=== PATIENT | female | born 1995 | race Caucasian/White ===

== ENCOUNTER 2020-05-05 20:55 | Emergency (ER) | payer BC ==
[~2020-05-05] VITALS: Ht 160 cm; Wt 61.2 kg
[2020-05-05 21:00] VITALS: BP 122/66
[2020-05-05 21:10] VITALS: BP 122/66
--- NOTE | 2020-05-05 21:10 | NUR ---
ASSESSD, TREATED, AND D/C BY ORVILLE BRYAN. NON NURSING INTERVENTION NEEDED.
== END 2020-05-05 21:10 | disposition home or self-care (01) ==
LOC: MED 20:55
DX: L03.115 Cellulitis of right lower limb (principal); I51.89 Other ill-defined heart diseases; W57.XXXA Bitten or stung by nonvenomous insect and other nonvenomous arthropods, initial encounter; Y93.89 Activity, other specified; Y92.89 Other specified places as the place of occurrence of the external cause; Y99.8 Other external cause status
CPT/HCPCS: 99283

== ENCOUNTER 2020-07-30 19:00 | Emergency (ER) | payer BC ==
[~2020-07-30] VITALS: Ht 158.8 cm; Wt 69.9 kg
[2020-07-30 19:04] VITALS: BP 119/54
--- NOTE | 2020-07-30 19:21 | NUR ---
24 y/o female c/o of abd pain. pt states she had severe abd pain that "felt like contractions for 12 minutes then went away." with c/o nausea and 4 episodes of vomiting. pt denies pain at this time. pt is approx 15 weeks . MEDHX- becki-danlos syndrome, arnold chiari type 2 NKA
--- NOTE | 2020-07-30 19:29 | NUR ---
DR CHAIREZ AT BEDSIDE EXAMINING PT
[2020-07-30] MEDS ORDERED: NACL 0.9% 1,000 ML IV ONE (19:35)
--- NOTE | 2020-07-30 20:00 | NUR ---
URINE AND BLOOD COLLECTED AND SENT TO LAB
[2020-07-30] MEDS ORDERED: ONDANSETRON 4 MG/2 ML VIAL IVP ONE (20:05)
[2020-07-30 20:08] LABS: APPEARANCE,URINE CLEAR (CLEAR); BILIRUBIN,URINE NEGATIVE (NEGATIVE); BLOOD, URINE NEGATIVE (NEGATIVE); COLOR,URINE YELLOW (YELLOW); LEUKOCYTE ESTERASE ,URINE NEGATIVE (NEGATIVE); NITRITE, URINE NEGATIVE (NEGATIVE); PH,URINE 6.5 (5.0-9.0); UGLUCOSE NEGATIVE (NEGATIVE)
[2020-07-30 20:09] LABS: BASOPHILS % (AUTO) 0.2 % (0.0-2.0); EOSINOPHILS % (AUTO) 0.5 % (0.0-4.0); HEMATOCRIT 39.9 % (36-48); HEMOGLOBIN 13.9 g/dL (12.0-16.0); LYMPHOCYTES # (AUTO) 2.5 K/uL (2.5-16.5); LYMPHOCYTES % (AUTO) 28.9 % (20.5-51.1); MEAN CORPUSCULAR HEMOGLOBIN 31 pg (27-31); MEAN CORPUSCULAR HGB CONC 35 g/dL (33-37); MEAN CORPUSCULAR VOLUME 88.3 fL (80-94); MONOCYTES # (AUTO) 0.5 K/uL (0.8-1.0); NEUTROPHILS # (AUTO) 5.5 K/uL (1.8-7.7); NEUTROPHILS % (AUTO) 64.4 % (42.2-75.2); PLATELET COUNT (AUTO) 283 K/uL (140-450); RED BLOOD CELL COUNT(AUTO) 4.51 MIL/uL (4.20-5.40); RED CELL DISTRIBUTION WIDTH 13.6 % (11.6-13.7); WHITE BLOOD COUNT (AUTO) 8.6 K/uL (4.8-10.8)
[2020-07-30 20:27] LABS: ALBUMIN 3.3 g/dL (3.4-5.0); ANION GAP 13.2 (8-16); CARBON DIOXIDE 26.5 mmol/L (21-32); CREATININE 0.5 mg/dL (0.6-1.3); POTASSIUM 3.7 mmol/L (3.5-5.1); TOTAL BILIRUBIN 0.2 mg/dL (0.0-1.0)
[2020-07-30 20:50] VITALS: BP 119/54
--- NOTE | 2020-07-30 20:50 | NUR ---
Patient discharged with v/s stable. Written and verbal after care instructions given and explained. Patient verbalized understanding. Ambulatory with steady gait. ID Band Removed. All questions addressed prior to discharge. Advised to follow up with PMD.
== END 2020-07-30 20:50 | disposition home or self-care (01) ==
LOC: MED 19:00
DX: O26.891 Other specified pregnancy related conditions, first trimester (principal); O21.9 Vomiting of pregnancy, unspecified; I51.89 Other ill-defined heart diseases; Z3A.15 15 weeks gestation of pregnancy
CPT/HCPCS: 36415; 80053; 81003; 81025; 83690; 85025; 96361; 96374; 99284; J2405; J7030

== ENCOUNTER 2020-11-06 15:00 | Observation (INO) | payer BC, SELFPAY ==
[~2020-11-06] VITALS: Ht 160 cm; Wt 74.8 kg
[2020-11-06] MEDS ORDERED: LACTATED RINGERS 1,000 ML IV SCH (15:35)
[2020-11-06] MEDS ORDERED: PANTOPRAZOLE 40 MG INJ VIAL IVP SCH (15:45)
[2020-11-06 16:07] LABS: BASOPHILS % (AUTO) 0.2 % (0.0-2.0); EOSINOPHILS # (AUTO) 0.1 K/uL (0-0.4); EOSINOPHILS % (AUTO) 0.6 % (0.0-4.0); HEMATOCRIT 32.8 % (36-48); LYMPHOCYTES # (AUTO) 2.2 K/uL (2.5-16.5); LYMPHOCYTES % (AUTO) 21.4 % (20.5-51.1); MEAN CORPUSCULAR HEMOGLOBIN 30 pg (27-31); MEAN CORPUSCULAR HGB CONC 34 g/dL (33-37); MEAN CORPUSCULAR VOLUME 87.9 fL (80-94); MONOCYTES # (AUTO) 0.7 K/uL (0.8-1.0); MONOCYTES % (AUTO) 6.3 % (1.7-9.3); NEUTROPHILS # (AUTO) 7.5 K/uL (1.8-7.7); NEUTROPHILS % (AUTO) 71.5 % (42.2-75.2); PLATELET COUNT (AUTO) 310 K/uL (140-450); RED BLOOD CELL COUNT(AUTO) 3.73 MIL/uL (4.20-5.40); RED CELL DISTRIBUTION WIDTH 12.8 % (11.6-13.7); WHITE BLOOD COUNT (AUTO) 10.5 K/uL (4.8-10.8)
[2020-11-06 16:30] LABS: ALBUMIN 2.7 g/dL (3.4-5.0); ANION GAP 10.9 (8-16); CARBON DIOXIDE 24.9 mmol/L (21-32); CREATININE 0.6 mg/dL (0.6-1.3); POTASSIUM 3.8 mmol/L (3.5-5.1); TOTAL BILIRUBIN 0.1 mg/dL (0.0-1.0)
[2020-11-06] MEDS ORDERED: FLUO10CA21 PO (16:48)
[2020-11-06] MEDS ORDERED: FERR-212 PO (16:48)
[2020-11-06] MEDS ORDERED: PNV91TAB10 PO (16:48)
[2020-11-06] MEDS ORDERED: ACETAMINOPHEN 325 MG TAB PO PRN (19:35)
[2020-11-06] MEDS ORDERED: ACETAMINOPHEN 325 MG TAB ONE (19:38)
== END 2020-11-06 21:03 | disposition home or self-care (01) ==
LOC: MLD 15:00
PROVIDERS: ADMIT Obstetrics & Gynecology; ATTEND Obstetrics & Gynecology
DX: O99.613 Diseases of the digestive system complicating pregnancy, third trimester (principal); K21.9 Gastro-esophageal reflux disease without esophagitis; Z20.822 Contact with and (suspected) exposure to COVID-19; O26.893 Other specified pregnancy related conditions, third trimester; R07.89 Other chest pain; R51.9 Headache, unspecified; O99.343 Other mental disorders complicating pregnancy, third trimester; F32.9 Major depressive disorder, single episode, unspecified; O99.891 Other specified diseases and conditions complicating pregnancy; Q79.60 Ehlers-Danlos syndrome, unspecified; I95.9 Hypotension, unspecified; O99.283 Endocrine, nutritional and metabolic diseases complicating pregnancy, third trimester; D35.2 Benign neoplasm of pituitary gland; O99.013 Anemia complicating pregnancy, third trimester; D64.9 Anemia, unspecified; Z87.59 Personal history of other complications of pregnancy, childbirth and the puerperium; Z3A.30 30 weeks gestation of pregnancy
CPT/HCPCS: 36415; 80053; 83880; 84484; 85025; 86886; 86900; 86901; 87426; 93005; 96361; 96374; C9113; G0378; J7120

== ENCOUNTER 2020-12-26 11:15 | Observation (INO) | payer BC, MEDICAID, SELFPAY ==
[~2020-12-26] VITALS: Ht 152.4 cm; Wt 81.6 kg
[~2020-12-26 11:15] MED LIST: FERR-212 PO; FLUO10CA21 PO; PNV91TAB10 PO
[2020-12-26] MEDS ORDERED: MORPHINE SULFATE 4 MG/ML SYR IVP PRN (12:20)
[2020-12-26] MEDS ORDERED: LACTATED RINGERS 1,000 ML IV SCH (12:20)
[2020-12-26] MEDS ORDERED: ONDANSETRON 4 MG/2 ML VIAL IVP PRN (12:20)
[2020-12-26 13:03] LABS: BASOPHILS % (AUTO) 0.1 % (0.0-2.0); EOSINOPHILS % (AUTO) 0.1 % (0.0-4.0); HEMATOCRIT 35.4 % (36-48); HEMOGLOBIN 11.4 g/dL (12.0-16.0); LYMPHOCYTES % (AUTO) 8.3 % (20.5-51.1); MEAN CORPUSCULAR HEMOGLOBIN 27 pg (27-31); MEAN CORPUSCULAR HGB CONC 32 g/dL (33-37); MEAN CORPUSCULAR VOLUME 81.9 fL (80-94); MONOCYTES # (AUTO) 0.6 K/uL (0.8-1.0); MONOCYTES % (AUTO) 5.2 % (1.7-9.3); NEUTROPHILS # (AUTO) 10.1 K/uL (1.8-7.7); NEUTROPHILS % (AUTO) 86.3 % (42.2-75.2); PLATELET COUNT (AUTO) 295 K/uL (140-450); RED BLOOD CELL COUNT(AUTO) 4.32 MIL/uL (4.20-5.40); RED CELL DISTRIBUTION WIDTH 14.6 % (11.6-13.7); WHITE BLOOD COUNT (AUTO) 11.7 K/uL (4.8-10.8)
[2020-12-26 13:04] LABS: APPEARANCE,URINE CLOUDY (CLEAR); BILIRUBIN,URINE NEGATIVE (NEGATIVE); BLOOD, URINE NEGATIVE (NEGATIVE); COLOR,URINE YELLOW (YELLOW); LEUKOCYTE ESTERASE ,URINE 2+ (NEGATIVE); NITRITE, URINE NEGATIVE (NEGATIVE); UGLUCOSE NEGATIVE (NEGATIVE)
[2020-12-26 13:13] LABS: RBC,URINE 0-5 /HPF (0-5)
[2020-12-26 13:14] LABS: URINE AMORPHOUS URATE 1+ /HPF (None Seen)
[2020-12-26] MEDS ORDERED: cefTRIAXone 1,000 MG in LIDOCAINE MPF 1% 2.1 ML INJ SCH (15:00)
[2020-12-26 15:07] VITALS: BP 113/74
== END 2020-12-26 16:45 | disposition home or self-care (01) ==
LOC: MLD 11:15
PROVIDERS: ADMIT Obstetrics & Gynecology; ATTEND Obstetrics & Gynecology
DX: O62.9 Abnormality of forces of labor, unspecified (principal); Z3A.37 37 weeks gestation of pregnancy
CPT/HCPCS: 36415; 59025; 81001; 85025; 87086; 87653; 96361; 96372; 96374; 96375; G0378; J0696; J2001; J2270; J2405; J7120

== ENCOUNTER 2020-12-28 10:15 | Observation (INO) | payer BC, MEDICAID, SELFPAY ==
[~2020-12-28] VITALS: Ht 160 cm; Wt 81.6 kg
[2020-12-28] MEDS ORDERED: NACL 0.9% 1,000 ML IV SCH (10:35)
[2020-12-28] MEDS ORDERED: LOPERAMIDE 2 MG CAP PO SCH (10:35)
[2020-12-28] MEDS ORDERED: NACL 0.9% 500 ML IV SCH (10:35)
[2020-12-28] MEDS ORDERED: OXYTOCIN 20 UNITS/LR PREMIX 1,000 ML IV ONE (11:23)
[2020-12-28 11:41] LABS: BASOPHILS % (AUTO) 0.2 % (0.0-2.0); EOSINOPHILS % (AUTO) 0.2 % (0.0-4.0); HEMATOCRIT 30.7 % (36-48); HEMOGLOBIN 10.1 g/dL (12.0-16.0); LYMPHOCYTES # (AUTO) 1.5 K/uL (2.5-16.5); LYMPHOCYTES % (AUTO) 16.8 % (20.5-51.1); MEAN CORPUSCULAR HEMOGLOBIN 27 pg (27-31); MEAN CORPUSCULAR HGB CONC 33 g/dL (33-37); MEAN CORPUSCULAR VOLUME 81.8 fL (80-94); MONOCYTES # (AUTO) 0.6 K/uL (0.8-1.0); MONOCYTES % (AUTO) 7.2 % (1.7-9.3); NEUTROPHILS # (AUTO) 6.6 K/uL (1.8-7.7); NEUTROPHILS % (AUTO) 75.6 % (42.2-75.2); PLATELET COUNT (AUTO) 237 K/uL (140-450); RED BLOOD CELL COUNT(AUTO) 3.76 MIL/uL (4.20-5.40); RED CELL DISTRIBUTION WIDTH 14.5 % (11.6-13.7); WHITE BLOOD COUNT (AUTO) 8.7 K/uL (4.8-10.8)
[2020-12-28] MEDS ORDERED: ONDANSETRON 4 MG/2 ML VIAL IVP PRN (11:50)
[2020-12-28 13:02] LABS: APPEARANCE,URINE CLOUDY (CLEAR); BILIRUBIN,URINE 1+ (NEGATIVE); BLOOD, URINE NEGATIVE (NEGATIVE); COLOR,URINE ORANGE (YELLOW); LEUKOCYTE ESTERASE ,URINE 2+ (NEGATIVE); NITRITE, URINE NEGATIVE (NEGATIVE); UGLUCOSE NEGATIVE (NEGATIVE)
[2020-12-28 14:56] VITALS: BP 114/71
[2020-12-28 16:32] LABS: POTASSIUM 3.9 mmol/L (3.5-5.1)
[2020-12-28 16:33] LABS: ANION GAP 21.1 (8-16); CARBON DIOXIDE 16.8 mmol/L (21-32); CREATININE 0.6 mg/dL (0.6-1.3); TOTAL BILIRUBIN 0.2 mg/dL (0.0-1.0)
[2020-12-28 16:34] LABS: ALBUMIN 2.3 g/dL (3.4-5.0)
[2020-12-28 18:17] LABS: RBC,URINE 0-5 /HPF (0-5)
== END 2020-12-28 14:00 | disposition home or self-care (01) ==
LOC: MLD 10:15
PROVIDERS: ADMIT Obstetrics & Gynecology; ATTEND Obstetrics & Gynecology
DX: O99.891 Other specified diseases and conditions complicating pregnancy (principal); E86.0 Dehydration; Z20.822 Contact with and (suspected) exposure to COVID-19; O26.893 Other specified pregnancy related conditions, third trimester; R19.7 Diarrhea, unspecified; Z3A.37 37 weeks gestation of pregnancy
CPT/HCPCS: 36415; 80053; 81000; 81001; 85025; 87086; 87426; 96361; 96374; G0378; J2405; J2590

== ENCOUNTER 2021-01-10 15:33 | Inpatient (IN) | payer BC, MEDICAID, SELFPAY ==
[~2021-01-10] VITALS: Ht 160 cm; Wt 83.0 kg
[2021-01-10] MEDS ORDERED: PROMETHAZINE 25 MG/ML VIAL IVP PRN (16:10)
[2021-01-10] MEDS ORDERED: OXYTOCIN 20 UNITS in LACTATED RINGERS 1,000 ML IV SCH (16:10)
[2021-01-10] MEDS ORDERED: CARBOPROST 250 MCG/ML AMP IM PRN (16:10)
[2021-01-10] MEDS ORDERED: METHYLERGONOVINE 0.2 MG/ML AMP IM PRN (16:10)
[2021-01-10] MEDS ORDERED: LACTATED RINGERS 500 ML IV SCH (16:10)
[2021-01-10] MEDS: LACTATED RINGERS 1,000 ML IV SCH (16:48)
[2021-01-10] MEDS ORDERED: MISOPROSTOL 25 MCG TAB ONE (16:51)
[2021-01-10] MEDS: MISOPROSTOL 25 MCG TAB VG SCH ×2 (16:59→21:01)
[2021-01-10 18:29] LABS: BASOPHILS % (AUTO) 0.1 % (0.0-2.0); EOSINOPHILS % (AUTO) 0.3 % (0.0-4.0); HEMATOCRIT 33.2 % (36-48); HEMOGLOBIN 10.9 g/dL (12.0-16.0); LYMPHOCYTES # (AUTO) 2.9 K/uL (2.5-16.5); LYMPHOCYTES % (AUTO) 23.9 % (20.5-51.1); MEAN CORPUSCULAR HEMOGLOBIN 26 pg (27-31); MEAN CORPUSCULAR HGB CONC 33 g/dL (33-37); MEAN CORPUSCULAR VOLUME 79.8 fL (80-94); MONOCYTES # (AUTO) 0.9 K/uL (0.8-1.0); MONOCYTES % (AUTO) 7.1 % (1.7-9.3); NEUTROPHILS # (AUTO) 8.2 K/uL (1.8-7.7); NEUTROPHILS % (AUTO) 68.6 % (42.2-75.2); PLATELET COUNT (AUTO) 332 K/uL (140-450); RED BLOOD CELL COUNT(AUTO) 4.16 MIL/uL (4.20-5.40)
[2021-01-10 18:39] LABS: APPEARANCE,URINE CLEAR (CLEAR); BILIRUBIN,URINE NEGATIVE (NEGATIVE); BLOOD, URINE NEGATIVE (NEGATIVE); COLOR,URINE YELLOW (YELLOW); LEUKOCYTE ESTERASE ,URINE NEGATIVE (NEGATIVE); NITRITE, URINE NEGATIVE (NEGATIVE); UGLUCOSE NEGATIVE (NEGATIVE)
[2021-01-10 18:45] LABS: ALBUMIN 2.6 g/dL (3.4-5.0); ANION GAP 13.2 (8-16); CARBON DIOXIDE 22.7 mmol/L (21-32); CREATININE 0.6 mg/dL (0.6-1.3); POTASSIUM 3.9 mmol/L (3.5-5.1); TOTAL BILIRUBIN 0.2 mg/dL (0.0-1.0)
[2021-01-10] MEDS: CALCIUM CARBONATE 500 MG TAB.CHEW PO SCH (20:59)
[2021-01-11] MEDS: MISOPROSTOL 25 MCG TAB VG SCH (00:53)
[2021-01-11] MEDS: CALCIUM CARBONATE 500 MG TAB.CHEW PO SCH ×2 (00:55→21:07)
[2021-01-11] MEDS: NALBUPHINE 10 MG/ML AMP IVP PRN ×2 (01:24→04:29)
[2021-01-11] MEDS ORDERED: OXYTOCIN 20 UNITS/LR PREMIX 1,000 ML IV ONE (05:06)
[2021-01-11] MEDS: LACTATED RINGERS 1,000 ML IV SCH ×2 (05:24→07:54)
[2021-01-11] MEDS ORDERED: ROPIVACAINE 0.2%/NS PREMIX 200 ML EPI ONE (07:02)
--- NOTE | 2021-01-11 08:34 | NUR ---
PATIENT HAS BEEN SCREENED AND CATEGORIZED LOW NUTRITION RISK. PATIENT WILL BE SEEN WITHIN 7 DAYS OF ADMISSION. 01/17/[address]
[2021-01-11] MEDS ORDERED: METHYLERGONOVINE 0.2 MG/ML AMP IM PRN (10:40)
[2021-01-11] MEDS ORDERED: METHYLERGONOVINE 0.2 MG TAB PO PRN (10:40)
[2021-01-11] MEDS ORDERED: MEASLES, MUMPS, AND RUBELLA 1 VIAL SQVAC PRN ×2 (10:40)
[2021-01-11] MEDS ORDERED: OXYTOCIN 10 UNITS/ML VIAL IM PRN (10:40)
[2021-01-11] MEDS ORDERED: BENZOCAINE/MENTHOL 20%-0.5% 60 GM CAN TP PRN (10:40)
[2021-01-11] MEDS ORDERED: IBUPROFEN 800 MG TAB PO PRN (10:40)
[2021-01-11] MEDS ORDERED: TEMAZEPAM 15 MG CAP PO PRN (10:40)
[2021-01-11] MEDS: oxyCODONE/APAP 5/325 MG 1 TAB TAB PO PRN ×2 (11:53→16:44)
[2021-01-11] MEDS ORDERED: AMMONIA AROMATIC 1 INHL INH ONE (12:48)
[2021-01-11] MEDS ORDERED: CALCIUM CARBONATE 500 MG TAB.CHEW PO SCH ×2 (14:03→14:30)
[2021-01-11] MEDS ORDERED: DOCUSATE SOD/SENNA 50/8.6 MG 1 TAB PO SCH (21:00)
[2021-01-12] MEDS: oxyCODONE/APAP 5/325 MG 1 TAB TAB PO PRN ×3 (00:27→10:54)
[2021-01-12 05:34] LABS: HEMATOCRIT 31.2 % (36-48); HEMOGLOBIN 10.2 g/dL (12.0-16.0)
[2021-01-12] MEDS: CALCIUM CARBONATE 500 MG TAB.CHEW PO SCH (09:00)
[2021-01-12] MEDS ORDERED: FLUoxetine 20 MG CAP PO SCH (11:30)
== END 2021-01-12 13:45 | disposition home or self-care (01) | DRG 807 ==
LOC: MLD 15:33 → MFCC 01-11 13:35
PROVIDERS: ADMIT Obstetrics & Gynecology; ATTEND Obstetrics & Gynecology
PROC: 10D07Z6 Extraction of Products of Conception, Vacuum, Via Natural or Artificial Opening (ICD-10-PCS; principal; 2021-01-11)
PROC: 0HQ9XZZ Repair Perineum Skin, External Approach (ICD-10-PCS; 2021-01-11)
PROC: 3E0R3BZ Introduction of Anesthetic Agent into Spinal Canal, Percutaneous Approach (ICD-10-PCS; 2021-01-11)
PROC: 00HU33Z Insertion of Infusion Device into Spinal Canal, Percutaneous Approach (ICD-10-PCS; 2021-01-11)
PROC: 3E0P7VZ Introduction of Hormone into Female Reproductive, Via Natural or Artificial Opening (ICD-10-PCS; 2021-01-11)
PROC: 3E0134Z Introduction of Serum, Toxoid and Vaccine into Subcutaneous Tissue, Percutaneous Approach (ICD-10-PCS; 2021-01-11)
DX: O77.0 Labor and delivery complicated by meconium in amniotic fluid (principal); Z37.0 Single live birth; O70.0 First degree perineal laceration during delivery; Z20.822 Contact with and (suspected) exposure to COVID-19; Z23 Encounter for immunization; Z3A.39 39 weeks gestation of pregnancy
CPT/HCPCS: 36415; 51702; 59200; 59409; 80053; 81003; 85018; 85025; 86592; 86886; 86900; 86901; J2300; J2550; J2590; J2795; J7120; U0003

== ENCOUNTER 2022-09-17 15:48 | Emergency (ER) | payer BC, MEDICAID, OTHER ==
[~2022-09-17] VITALS: Ht 160 cm; Wt 74.2 kg
[2022-09-17 15:56] VITALS: BP 121/69
--- NOTE | 2022-09-17 17:32 | NUR ---
ORTHO SHOE APPLIED TO R FOOT. YONTAAN TAPE 4/5 DIGITS. + CMS
--- NOTE | 2022-09-17 17:34 | NUR ---
Patient discharged with v/s stable. Written and verbal after care instructions FOR TOE FRACTURE given and explained. Patient verbalized understanding. Ambulatory with steady gait. All questions addressed prior to discharge. Advised to follow up with PMD.
--- NOTE | 2022-09-17 17:35 | NUR ---
The patient's care was reviewed and supervised by Ashley Correia RN.
== END 2022-09-17 16:35 | disposition home or self-care (01) ==
LOC: MED 15:48
DX: S92.514A Nondisplaced fracture of proximal phalanx of right lesser toe(s), initial encounter for closed fracture (principal); Z79.899 Other long term (current) drug therapy; W22.8XXA Striking against or struck by other objects, initial encounter; Y93.89 Activity, other specified; Y92.89 Other specified places as the place of occurrence of the external cause; Y99.8 Other external cause status
CPT/HCPCS: 73630; 73660; 99284

== ENCOUNTER 2022-10-11 16:40 | Emergency (ER) | payer MEDICAID, OTHER ==
[~2022-10-11] VITALS: Ht 160 cm; Wt 75.7 kg
[2022-10-11 16:54] VITALS: BP 127/74
--- NOTE | 2022-10-11 18:29 | NUR ---
ATTEMPTED TO D/C PT, NOT FOUND IN LOBBY/OUTSIDE. PT LEFT WITHOUT D/C PAPERS
== END 2022-10-11 18:32 | disposition home or self-care (01) ==
LOC: MED 16:40
DX: M79.601 Pain in right arm (principal); Z79.899 Other long term (current) drug therapy
CPT/HCPCS: 99281

== ENCOUNTER 2023-04-06 14:01 | Emergency (ER) | payer OTHER ==
[~2023-04-06] VITALS: Ht 165.1 cm; Wt 72.6 kg
[2023-04-06 14:17] VITALS: BP 114/70; PULSE 84; RESP 18; TEMP 98.2; O2SAT 98
[2023-04-06] MEDS ORDERED: DEXAMETHASONE 10 MG/ML VIAL PO ONE (14:35)
--- NOTE | 2023-04-06 14:56 | NUR ---
27 Y/O FEMALE BIB SELF, PATIENT PRESENTS TO ED WITH SORE THROAT THAT COMES AND GOES FOR 3 MO. PT STATES SHE WAS GIVEN AMOXICILLIN AND PENICILLIN WITH NO RELIEF. PT STATES SHE WAS NOT SWABBED FOR STREP OR THROAT CULTURES. DENIES N/V/D; SKIN IS PINK/WARM/DRY; AAOX4 WITH EVEN AND STEADY GAIT; LUNGS CLEAR BL; HR EVEN AND REGULAR; PT DENIES ANY FEVER, CP, SOB AT THIS TIME; PATIENT STATES PAIN OF 0/10 AT THIS TIME; VSS; ER MD MADE AWARE OF PT STATUS. PT AWAITING IN LOBBY. PMH: GERD, PSYCH HX NKA
[2023-04-06] MEDS ORDERED: IBUP-2213 PO (15:03)
[2023-04-06] MEDS ORDERED: BENZ-300 PO (15:03)
--- NOTE | 2023-04-06 15:09 | NUR ---
PT SWABBED FOR STREP, SAMPLES GIVEN TO PHLEB
[2023-04-06 15:10] VITALS: BP 114/70; PULSE 84; RESP 18; TEMP 98.2; O2SAT 98
--- NOTE | 2023-04-06 15:10 | NUR ---
Patient discharged with v/s stable. Written and verbal after care instructions given and explained. Patient alert, oriented and verbalized understanding of instructions. Ambulatory with steady gait. All questions addressed prior to discharge. ID band removed. Patient advised to follow up with PMD. Rx of CEPACOL, MOTRIN (SENT) given. Patient educated on indication of medication including possible reaction and side effects. Opportunity to ask questions provided and answered.
[2023-04-06] MEDS ORDERED: AMOX1TAB8 PO (16:29)
== END 2023-04-06 15:10 | disposition home or self-care (01) ==
LOC: MED 14:01
DX: J02.9 Acute pharyngitis, unspecified (principal); Z79.899 Other long term (current) drug therapy
CPT/HCPCS: 87081; 99283; J1100

== ENCOUNTER 2023-06-10 09:52 | Emergency (ER) | payer OTHER ==
[~2023-06-10] VITALS: Ht 160 cm; Wt 67.6 kg
[~2023-06-10 09:52] MED LIST changes: +AMOX1TAB8 PO; +BENZ-300 PO; +IBUP-2213 PO
[2023-06-10 09:54] VITALS: BP 114/80; PULSE 80; RESP 16; TEMP 97.4; O2SAT 100
[2023-06-10] MEDS ORDERED: KETOROLAC 60 MG/2 ML VIAL IM ONE (10:10)
[2023-06-10] MEDS ORDERED: ACET-8905 PO (11:33)
[2023-06-10] MEDS ORDERED: IBUP-2213 PO (11:33)
[2023-06-10 11:43] VITALS: BP 114/80; PULSE 80; RESP 16; TEMP 97.4; O2SAT 100
== END 2023-06-10 11:45 | disposition home or self-care (01) ==
LOC: MED 09:52
DX: M25.561 Pain in right knee (principal); F17.200 Nicotine dependence, unspecified, uncomplicated; Z79.899 Other long term (current) drug therapy
CPT/HCPCS: 96372; 99283; J1885